=== PATIENT | female | born 1960 | race Caucasian/White ===

== ENCOUNTER 2019-09-20 01:25 | Day surgery (SDC) | payer OTHER, SELFPAY ==
[2019-09-14 13:11] VITALS: BMI 28.6
[2019-09-20 12:27] VITALS: BP 136/92; PULSE 87; RESP 16; TEMP 36.6; O2SAT 100; BMI 28.2
[2019-09-20] MEDS: LACTATED RINGERS 1,000 ML 150 ML IV CONT (12:38)
--- NOTE | 2019-09-20 12:53 | WPDANESEPPF ---
Anes - Initial Pre Proc Eval Procedure: Operation Date: 09/20/19 13:30 Proposed Procedures p Screening Colonoscopy - Clay Latif MD Date/Time: 09/20/19 12:53 Surgeon: Clay Latif MD Pre Op Diagnosis: Neoplasm Screening Patient Data Age: 59 Gender: F Height: 5 ft 9 in Weight: 86.8 kg Last Vital Signs Temp 36.6 C 09/20/19 12:27 Pulse 87 09/20/19 12:27 Resp 16 09/20/19 12:27 BP 136/92 H 09/20/19 12:27 Pulse Ox 100 09/20/19 12:27 Allergies Allergy/AdvReac Type Severity Reaction Status Date / Time No Known Allergies Allergy Unverified 09/20/19 12:26 Home Medications Medication Instructions Recorded Confirmed Type levothyroxine 75 mcg tablet 75 mcg PO DAILY #90 tablet 08/19/19 09/20/19 Rx Patient hx anesthesia problems: none Family hx anesthesia problems: none PMFSH Family History Family History Father Hypertension Family history of coronary artery disease Mother Hypertension Family history of coronary artery disease Sibling Hypertension Family history of type 1 diabetes mellitus Social History Social History Smoking status: Never smoker Alcohol intake: never Gender identity (if verbalized by the patient): Female Anes - Eval Final PreProcedure Day of Procedure 09/20/19 12:53 Patient weight: overweight Heart: regular rate and rhythm Lungs: clear to auscultation Airway: Mallampati scale class II Last oral intake: >/= 8 hours ASA classification: II Emergent: no Anesthetic plan: proceed Anesthesia type and monitoring: general GIVS and standard monitoring Informed Consent: The patient's anesthetic plan and its attendant risks and benefits were discussed with the patient/family/POA. Questions were solicited and answers provided to the satisfaction of the patient/family/POA.
--- NOTE | 2019-09-20 13:32 | PM.HPGS ---
History of Present Illness History of Present Illness Consent: Risks, benefits, and alternatives have been discussed and questions answered. Patient agrees to proceed with procedure. Chief complaint: Neoplasm Screening Narrative: Rayne Hidalgo is a 59 year old female here for screening colonoscopy, last one about 10 years ago. Review of Systems Constitutional: Constitutional: Denies headache(s) and Denies weakness Eyes: Eyes: Denies blurry vision ENT: Reports Normal hearing present, Denies headache(s) and Denies neck pain Cardiovascular: Cardiovascular: Denies chest pain and Denies dyspnea Respiratory: Respiratory: Denies dyspnea Gastrointestinal: Gastrointestinal: Reports no additional gastrointestinal complaints Genitourinary: Genitourinary: Denies dysuria Musculoskeletal: Musculoskeletal: Denies neck pain Integumentary/Breasts: Skin/Breast: Denies dry skin Neurologic: Reports Normal hearing present, Denies headache(s) and Denies weakness Psychiatric: Psychiatric: Denies anxiety Endocrine: Endocrine: Denies change in body appearance Hematologic/Lymphatic: Hematologic/Lymphatic: Denies easy bleeding Allergic/Immunologic: Allergic/Immunologic: Denies urticaria PMFSH Past Medical History Medical History (Updated 09/20/19 @ 13:32 by Clay Latif MD) Colon cancer screening Family History Family History Father Hypertension Family history of coronary artery disease Mother Hypertension Family history of coronary artery disease Sibling Hypertension Family history of type 1 diabetes mellitus Social History Social History Smoking status: Never smoker Alcohol intake: never Gender identity (if verbalized by the patient): Female Meds Home Medications and Allergies Home Medications Medication Instructions Recorded Confirmed Type levothyroxine 75 mcg tablet 75 mcg PO DAILY #90 tablet 08/19/19 09/20/19 Rx Allergies Allergy/AdvReac Type Severity Reaction Status Date / Time No Known Allergies Allergy Unverified 09/20/19 12:26 Vital Signs Vital Signs - 24 hr 09/20/19 12:27 Temperature 97.9 F Pulse Rate 87 Respiratory Rate 16 Blood Pressure 136/92 H Pulse Oximetry 100 Exam Const: General: comfortable and no acute distress HENMT: General nose exam: Normal nares present Eyes: General: appearance normal, both eyes and all related structures Neck: Neck: no JVD Resp: Auscultation: clear to auscultation bilaterally Cardio: Rate: regular rate Rhythm: regular rhythm GI: Inspection: non-distended GI Palp: Yes Soft to palpation Skin: General skin exam: normal color Neuro: General: gait normal Speech: normal speech Extrem: General: normal to inspection Psych: Mental Status: mental status grossly normal Assessment and Plan Assessment and plan (1) Colon cancer screening: Code(s): Z12.11 - Encounter for screening for malignant neoplasm of colon Status: Acute Assessment and Plan: will proceed with colonoscopy (2) Acquired hypothyroidism: Code(s): E03.9 - Hypothyroidism, unspecified Status: Chronic
[2019-09-20 13:55] VITALS: BP 110/68; PULSE 69; RESP 17; O2SAT 97
[2019-09-20 14:05] VITALS: BP 109/77; PULSE 68; RESP 23; O2SAT 97
[2019-09-20 14:15] VITALS: BP 104/77; PULSE 71; RESP 20; O2SAT 97
== END 2019-09-20 14:29 | disposition home or self-care (01) ==
PROVIDERS: PCP Family Medicine; Visit Provider Internal Medicine Gastroenterology
PROC: 0DJD8ZZ Inspection of Lower Intestinal Tract, Via Natural or Artificial Opening Endoscopic (ICD-10-PCS; CPT 45378; principal; 2019-09-20 13:30)
DX: Z12.11 Encounter for screening for malignant neoplasm of colon (principal); K57.30 Diverticulosis of large intestine without perforation or abscess without bleeding; K64.8 Other hemorrhoids; E03.9 Hypothyroidism, unspecified
CPT/HCPCS: 45378; J2704; J7120

== ENCOUNTER → 2019-10-27 17:44 | Outpatient (CLI) | payer OTHER, SELFPAY ==
--- NOTE | ~2019-10-27 | MM_ITS ---
EXAMINATION: MM screening [facility] BI w [place] HISTORY: Screening mammogram TECHNIQUE: Craniocaudal and mediolateral oblique 3-D tomosynthesis images were obtained and synthetic 2-D images were generated. CAD analysis was submitted and interpreted. COMPARISON: 10/01/2018, 09/29/2017, 09/23/2016 bilateral digital screening mammogram examinations of the resolution of right Or BREAST PARENCHYMAL COMPOSITION: There are scattered areas of fibroglandular density. FINDINGS: There are scattered smaller 5 mm bilateral low-density circumscribed opacities, with benign mammographic features. There is no evidence of suspicious mass, calcification, or architectural dist ortion to suggest malignancy in either breast. There has been no suspicious interval change. IMPRESSION: 1. No mammographic evidence of malignancy. 2. Recommend routine screening mammography in one year. BI-RADS Category 2: Benign finding(s). Reviewed, dictated and finalized at location A.
== END ==
PROVIDERS: Visit Provider Obstetrics & Gynecology
DX: Z12.31 Encounter for screening mammogram for malignant neoplasm of breast (principal)
CPT/HCPCS: 77063; 77067

== ENCOUNTER 2020-05-04 10:05 | Emergency (ER) | payer OTHER, SELFPAY ==
--- NOTE | ~2020-05-04 | XR_ITS ---
XR pelvis 1-2V 05/04/2020 10:56 Indication: Status post fall. Pelvic pain. Procedure: AP view of the pelvis Comparison: Right hip series dated 05/19/2016 Findings: Pelvic rings intact. Mild osteoarthritis of the hips. No acute fracture or traumatic malali gnment. Sacral foramen are symmetric. Impression: 1: Mild osteoarthritis of the hips. Reviewed, dictated and finalized at location B. Impression: 1: Mild osteoarthritis of the hips.
--- NOTE | ~2020-05-04 | XR_ITS ---
XR wrist LT min 3V 05/04/2020 10:56 Indication: Left wrist pain after fall Procedure: 4 views left wrist Comparison: No prior studies for comparison. Findings: There is a transverse fracture of the distal radial metaphysis with approximately one third bone width dorsal displacement and subtle dorsal tilt. There is ulnar styloid avulsion fracture. Impression: 1: Dorsally displaced distal radial metaphyseal fracture with mild dorsal tilt. 2: Ulnar styloid avulsion fracture. Reviewed, dictated and finalized at location B. Impression: 1: Dorsally displaced distal radial metaphyseal fracture with mild dorsal tilt. 2: Ulnar styloid avulsion fracture.
[2020-05-04 10:25] VITALS: BP 116/67; PULSE 56; RESP 16; TEMP 36.6; O2SAT 100
--- NOTE | 2020-05-04 10:32 | ED.FALL ---
HPI - Fall General Chief Complaint: Fall Stated Complaint: fall/wrist injury Time Seen by Provider: 05/04/20 10:32 History of Present Illness HPI Narrative: Fall down stairs this morning. She landed on her buttocks and left hand. She has severe pain in the left wrist. Sensation and motor intact. Additionally having mild pain in the left buttock. She has been ambulatory. She did not strike her head or sustain any additional injury. Related Data Allergies Allergy/AdvReac Type Severity Reaction Status Date / Time No Known Allergies Allergy Verified 05/04/20 10:29 Review of Systems Review of Systems: All systems reviewed & are unremarkable except as noted in HPI and below Constitutional: Constitutional: Denies fever(s) and Denies weakness Cardiovascular: Cardiovascular: Denies chest pain Respiratory: Respiratory: Denies dyspnea Gastrointestinal: Gastrointestinal: Denies abdominal pain and Denies nausea Musculoskeletal: Musculoskeletal: Denies back pain Neurologic: Denies dizziness, Denies syncope, Denies numbness and Denies weakness [facility] Past Medical History Medical History Colon cancer screening Family History Family History Father Hypertension Family history of coronary artery disease Mother Hypertension Family history of coronary artery disease Sibling Hypertension Family history of type 1 diabetes mellitus Social History Social History Smoking status: Never smoker Alcohol intake: never Substance use: never Substance use type: does not use Gender identity (if verbalized by the patient): Female Exam Const: General: healthy appearing, no acute distress and alert Orientation/consciousness: patient oriented x3 HENMT: Head: normal to inspection Course Vital Signs Vital signs: Vital Signs Temperature 36.6 C 05/04/20 10:25 Pulse Rate 56 L 05/04/20 10:25 Respiratory Rate 16 05/04/20 10:25 Blood Pressure 116/67 05/04/20 10:25 Pulse Oximetry 100 05/04/20 10:25 Temperature 36.6 C 05/04/20 10:25 Pulse Rate 58 L 05/04/20 12:13 Respiratory Rate 17 05/04/20 12:13 Blood Pressure 107/71 05/04/20 12:13 Pulse Oximetry 100 05/04/20 12:13 Procedures Orthopedic Splinting/Casting Injury #1: Side: left Splint: customized in ED OCL: short arm Pre-Procedure Neuro Vascular Exam: normal Post-Procedure Neuro Vascular Exam: normal MDM - Fall MDM Narrative Medical decision making narrative: mildy displaced and angulated wrist fracture. I do not believe that it would be of any significant benefit to attempt reduction at this time. Splinted. Will give ortho follow-up Medical Records Attestation: I reviewed the patient's medical records. Imaging Data Radiologist's impression: ITS Impressions Wrist X-Ray 05/04/20 10:58 Impression: 1: Dorsally displaced distal radial metaphyseal fracture with mild dorsal tilt. 2: Ulnar styloid avulsion fracture. Pelvis X-Ray 05/04/20 11:05 Impression: 1: Mild osteoarthritis of the hips. Discharge Plan Discharge Clinical Impression: Fracture of wrist Qualifiers: Encounter type: initial encounter Fracture type: closed Laterality: left Qualified Code(s): S62.102A - Fracture of unspecified carpal bone, left wrist, initial encounter for closed fracture Patient Disposition: Home, Self-Care Condition: Stable Instructions: Wrist Fracture in Adults (ED) Prescriptions: New hydrocodone-acetaminophen [[place]] 5-325 mg tablet 1 tablet PO Q4H PRN (Reason: pain) Qty: 10 RF: 0 ibuprofen 600 mg tablet 600 mg PO QID Qty: 30 RF: 0 No Action levothyroxine 75 mcg tablet 75 mcg PO DAILY Qty: 90 RF: 2 metoprolol succinate 50 mg tablet extended release 24 hr 50 mg PO DAILY Qty: 90 RF: 1
[2020-05-04] MEDS: HYDROcodone/acetaminophen (*CRX) 5-325 MG TABLET 1 TAB PO (11:08)
[2020-05-04 12:13] VITALS: BP 107/71; PULSE 58; RESP 17; O2SAT 100
== END 2020-05-04 12:14 | disposition home or self-care (01) ==
PROVIDERS: Emergency Provider Emergency Medicine; PCP Family Medicine
DX: S52.502A Unspecified fracture of the lower end of left radius, initial encounter for closed fracture (principal); S52.612A Displaced fracture of left ulna styloid process, initial encounter for closed fracture; W10.9XXA Fall (on) (from) unspecified stairs and steps, initial encounter
CPT/HCPCS: 29125; 72170; 73110; 99284; A9270

== ENCOUNTER → 2020-05-24 11:15 | Outpatient (CLI) | payer OTHER, SELFPAY ==
--- NOTE | ~2020-05-24 | DEXA_ITS ---
Bone Density Report Name: Rayne Hidalgo Age: 59 Sex: Female Ethnicity: White Date of : 1960 Indication: osteopenia; parental hip fracture; prior fracture; postmenopausal Referring Provider: KARLY JONES Study: Bone densitometry was performed. Exam Date: May 24, 2020 Accession number: [id number] Bone Density: Region BMD T-score Z-score Classification AP Spine (L1-L4) 0.824 -2.0 -0.5 Osteopenia Femoral Neck (Left) 0.728 -1.1 0.3 Osteopenia Total Hip (Left) 0.849 -0.8 0.3 Normal Femoral Neck (Right) 0.708 -1.3 0.1 Osteopenia Total Hip (Right) 0.860 -0.7 0.4 Normal Total Hip Mean 0.855 -0.8 0.4 Normal World Health Organization criteria for BMD impression classify patients as: Normal (T-score at or above -1.0), Osteopenia (T-score between -1.0 and -2.5), or Osteoporosis (T-score at or below -2.5). 10-year Fracture Risk(1): Major Osteoporotic Fracture 25% Hip Fracture 1.0% Reported Risk Factors: [place] (), Neck BMD=0.708, BMI=29.1, previous fracture, parental fracture (1) FRAX(R) Version 3.08. Fracture probability calculated for an untreated patient. Fracture probability may be lower if the patient has received treatment. Previous Exams: Region Exam Age BMD T-score BMD Change BMD Change Date g/cm2 vs Baseline vs Previous AP Spine(L1-L4) 05/24/2020 59 0.824 -2.0 -0.047* -0.033* 09/29/2017 57 0.857 -1.7 -0.015 0.032* 09/17/2015 55 0.825 -2.0 -0.047* 0.010 09/11/2012 52 0.814 -2.1 -0.057* -0.057* 07/24/2010 50 0.871 -1.6 0.000 0.000 06/28/2008 48 0.871 -1.6 Total Hip(Left) 05/24/2020 59 0.849 -0.8 -0.010 0.021 09/29/2017 57 0.828 -0.9 -0.031* -0.016 09/17/2015 55 0.844 -0.8 -0.015 0.020 09/11/2012 52 0.824 -1.0 -0.036* -0.027 07/24/2010 50 0.851 -0.7 -0.009 -0.009 06/28/2008 48 0.859 -0.7 Total Hip(Right) 05/24/2020 59 0.860 -0.7 0.001 0.037* 09/29/2017 57 0.824 -1.0 -0.035* -0.011 09/17/2015 55 0.835 -0.9 -0.025 0.022 09/11/2012 52 0.812 -1.1 -0.047* 0.003 07/24/2010 50 0.809 -1.1 -0.050* -0.050* 06/28/2008 48 0.859 -0.7 *Denotes significance at 95% confidence level, LSC for AP Spine = 0.022 g/cm2, LSC for Total Hip = 0.027 g/cm2 Clinical Information Provided by Patient:
== END ==
PROVIDERS: PCP Family Medicine; Visit Provider Orthopaedic Surgery
DX: M81.0 Age-related osteoporosis without current pathological fracture (principal); M85.88 Other specified disorders of bone density and structure, other site; M85.852 Other specified disorders of bone density and structure, left thigh; M85.851 Other specified disorders of bone density and structure, right thigh
CPT/HCPCS: 77080

== ENCOUNTER → 2020-11-08 07:16 | Outpatient (CLI) | payer OTHER, SELFPAY ==
--- NOTE | ~2020-11-08 | MM_ITS ---
EXAMINATION: MM screening [facility] BI w [place] HISTORY: Screening mammogram TECHNIQUE: Craniocaudal and mediolateral oblique 3-D tomosynthesis images were obtained and synthetic 2-D images were generated. CAD analysis was submitted and interpreted. COMPARISON: 10/27/2019, 10/01/2018, 09/29/2017 BREAST PARENCHYMAL COMPOSITION: There are scattered areas of fibroglandular density. FINDINGS: There is no evidence of suspicious mass, calcification, or architectural distortion to sugg est malignancy in either breast. There has been no suspicious interval change. IMPRESSION: 1. No mammographic evidence of malignancy. 2. Recommend routine screening mammography in one year. BI-RADS Category 1: Negative Reviewed, dictated and finalized at location A.
== END ==
PROVIDERS: Visit Provider Obstetrics & Gynecology
DX: Z12.31 Encounter for screening mammogram for malignant neoplasm of breast (principal)
CPT/HCPCS: 77063; 77067

== ENCOUNTER → 2021-04-20 00:38 | Outpatient (CLI) | payer OTHER, SELFPAY ==
[2021-04-20 21:01] LABS: SARS-CoV-2 RNA PCR Negative
== END ==
PROVIDERS: PCP Family Medicine; Visit Provider Family Medicine
DX: J02.9 Acute pharyngitis, unspecified (principal); Z20.828 Contact with and (suspected) exposure to other viral communicable diseases
CPT/HCPCS: C9803; U0003; U0005

== ENCOUNTER 2021-06-24 12:26 | Outpatient (CLI) | payer OTHER, SELFPAY ==
--- NOTE | 2021-06-24 15:13 | WPDPFTINT ---
PFT Procedure Performed PFT Procedure Performed Plethysmography (Lung Vol) Diffusing Cap (DLCO) Flow Vol Loop Spirometry w/o Bronchodil PFT Interpretation Lung volumes were measured with the body plethysmography method. Lung volumes are unremarkable. Spirometry showed normal expiratory flow rates and a normal FEV1 to FVC ratio of 77%. No post bronchodilator study carried out. Lung diffusion capacity is within the normal range. Impression: Spirometry, lung volumes, and lung diffusion capacity all within the normal range.
== END 2021-06-24 12:27 | disposition home or self-care (01) ==
LOC: ANHPFT 12:27
PROVIDERS: PCP Family Medicine; Visit Provider Internal Medicine Cardiovascular Disease
DX: R06.00 Dyspnea, unspecified (principal)
CPT/HCPCS: 94375; 94726; 94729

== ENCOUNTER 2021-11-28 08:28 | Outpatient (CLI) | payer OTHER, SELFPAY ==
--- NOTE | ~2021-11-28 | XR_ITS ---
EXAMINATION: XR lumbar spine min 4V EXAM DATE: 11/28/2021 08:57 INDICATION: Low Back And Left Hip Pain No Injury. TECHNIQUE: Lumber spine frontal, lateral, bilateral oblique projections. Coned down frontal and lat eral L5-S1 lumbar projections for interpretation. There is no prior study for comparison. FINDINGS: Minimal lumbar levocurvature. No spondylolysis. There is mild to moderate lumbar facet arth ropathy. There is mild disc disease T11-L2. Vertebral body and disc heights are otherwise well-mainta ined. The vertebral bodies are aligned in the AP dimension. Sacrum, sacroiliac joints, sacral arcuate lines are intact. There are no acute fractures identified. IMPRESSION: 1. Mild to moderate lumbar facet arthropathy. 2. Mild thoracolumbar disc disease. Reviewed, dictated and finalized at location B.
--- NOTE | ~2021-11-28 | XR_ITS ---
EXAMINATION: XR hip LT min 3V w AP pelvis EXAM DATE: 11/28/2021 08:57 INDICATION: Low Back And Left Hip Pain No Injury . TECHNIQUE: Left hip frontal, crosstable lateral and 'frog-leg' projections for interpretation. Fronta l projection pelvis. Correlation is made to right hip x-ray 2015. FINDINGS: There is mild to moderate symmetric bilateral hip primary osteoarthritis. No evidence of f emoral head avascular necrosis. Right acetabular bone island is unchanged. There are no acute fractur es or dislocations identified. There is no subcutaneous gas. The soft tissue is unremarkable. The re are no radiopaque foreign bodies. IMPRESSION: Mild to moderate symmetric bilateral hip osteoarthritis. Reviewed, dictated and finalized at location B.
== END 2021-11-28 08:29 | disposition home or self-care (01) ==
LOC: ANHIMG 08:34
PROVIDERS: PCP Family Medicine; Visit Provider Physician Assistant
DX: M51.34 Other intervertebral disc degeneration, thoracic region (principal); M16.0 Bilateral primary osteoarthritis of hip
CPT/HCPCS: 72110; 73502

== ENCOUNTER → 2021-12-12 12:30 | Outpatient (CLI) | payer OTHER, SELFPAY ==
--- NOTE | ~2021-12-12 | MM_ITS ---
EXAMINATION: MM screening [facility] BI w [place] HISTORY: Screening TECHNIQUE: Craniocaudal and mediolateral oblique 3-D tomosynthesis images were obtained and synthetic 2-D images were generated. CAD analysis was submitted and interpreted. COMPARISON: Comparison to multiple prior studies sequentially, with oldest reviewed study dated 02/2017. BREAST PARENCHYMAL COMPOSITION: There are scattered areas of fibroglandular density. FINDINGS: There is no evidence of suspicious mass, calcification, or architectural distortion to sugg est malignancy in either breast. There has been no suspicious interval change. IMPRESSION: 1. No mammographic evidence of malignancy. 2. Recommend routine screening mammography in one year. BI-RADS Category 1: Negative Reviewed, dictated and finalized at location A.
== END ==
PROVIDERS: PCP Family Medicine; Visit Provider Nurse Practitioner
DX: Z12.31 Encounter for screening mammogram for malignant neoplasm of breast (principal)
CPT/HCPCS: 77063; 77067

== ENCOUNTER 2022-03-23 10:03 | Emergency (ER) | payer OTHER, SELFPAY ==
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
[2022-03-23 10:05] VITALS: BP 132/79; PULSE 94; RESP 16; TEMP 37.1; O2SAT 99
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
== END 2022-03-23 13:40 | disposition home or self-care (01) ==
PROVIDERS: Emergency Provider Emergency Medicine; PCP Family Medicine
DX: S42.255A Nondisplaced fracture of greater tuberosity of left humerus, initial encounter for closed fracture (principal); S29.9XXA Unspecified injury of thorax, initial encounter; S80.212A Abrasion, left knee, initial encounter; I10 Essential (primary) hypertension; E03.9 Hypothyroidism, unspecified; Z90.5 Acquired absence of kidney; V18.4XXA Pedal cycle driver injured in noncollision transport accident in traffic accident, initial encounter
CPT/HCPCS: 71100; 73030; 99284; A4565

== ENCOUNTER → 2022-08-12 14:45 | Outpatient (CLI) | payer OTHER, SELFPAY ==
--- NOTE | ~2022-08-12 | DEXA_ITS ---
Bone Density Report Name: MARTHA FUCHS Age: 62 Sex: Female Ethnicity: White Date of : 1960 Indication: osteopenia; parental hip fracture; prior fracture; postmenopausal Referring Provider: Willie*Brigitte, Jenny Study: Bone densitometry was performed. Exam Date: August 12, 2022 Accession number: [id number] Bone Density: Region BMD T-score Z-score Classification AP Spine (L1-L4) 0.839 -1.9 -0.2 Osteopenia Femoral Neck (Left) 0.728 -1.1 0.4 Osteopenia Total Hip (Left) 0.876 -0.5 0.6 Normal Femoral Neck (Right) 0.690 -1.4 0.0 Osteopenia Total Hip (Right) 0.858 -0.7 0.5 Normal Total Hip Mean 0.867 -0.6 0.6 Normal World Health Organization criteria for BMD impression classify patients as: Normal (T-score at or above -1.0), Osteopenia (T-score between -1.0 and -2.5), or Osteoporosis (T-score at or below -2.5). 10-year Fracture Risk(1): Major Osteoporotic Fracture 26% Hip Fracture 1.4% Reported Risk Factors: [place] (), Neck BMD=0.690, BMI=29.5, previous fracture, parental fracture (1) FRAX(R) Version 3.08. Fracture probability calculated for an untreated patient. Fracture probability may be lower if the patient has received treatment. Previous Exams: Region Exam Age BMD T-score BMD Change BMD Change Date g/cm2 vs Baseline vs Previous AP Spine(L1-L4) 08/12/2022 62 0.839 -1.9 -0.032 0.015 05/24/2020 59 0.824 -2.0 -0.047* -0.033* 09/29/2017 57 0.857 -1.7 -0.015 0.032* 09/17/2015 55 0.825 -2.0 -0.047* 0.010 09/11/2012 52 0.814 -2.1 -0.057* -0.057* 07/24/2010 50 0.871 -1.6 0.000 0.000 06/28/2008 48 0.871 -1.6 Total Hip(Left) 08/12/2022 62 0.876 -0.5 0.017 0.027 05/24/2020 59 0.849 -0.8 -0.010 0.021 09/29/2017 57 0.828 -0.9 -0.031* -0.016 09/17/2015 55 0.844 -0.8 -0.015 0.020 09/11/2012 52 0.824 -1.0 -0.036* -0.027 07/24/2010 50 0.851 -0.7 -0.009 -0.009 06/28/2008 48 0.859 -0.7 Total Hip(Right) 08/12/2022 62 0.858 -0.7 -0.001 -0.002 05/24/2020 59 0.860 -0.7 0.001 0.037* 09/29/2017 57 0.824 -1.0 -0.035* -0.011 09/17/2015 55 0.835 -0.9 -0.025 0.022 09/11/2012 52 0.812 -1.1 -0.047* 0.003 07/24/2010 50 0.809 -1.1 -0.050* -0.050* 06/28/2008 48 0.859 -0.7
== END ==
PROVIDERS: PCP Family Medicine; Visit Provider Nurse Practitioner
DX: M85.88 Other specified disorders of bone density and structure, other site (principal); M85.852 Other specified disorders of bone density and structure, left thigh; M85.851 Other specified disorders of bone density and structure, right thigh
CPT/HCPCS: 77080

== ENCOUNTER → 2023-01-30 16:11 | Outpatient (CLI) | payer OTHER, SELFPAY ==
--- NOTE | ~2023-01-30 | MM_ITS ---
EXAMINATION: MM screening [facility] BI w [facility] HISTORY: Screening mammogram TECHNIQUE: Craniocaudal and mediolateral oblique 3-D tomosynthesis images were obtained and synthetic 2-D images were generated. CAD analysis was submitted and interpreted. COMPARISON: December 12, 2021, November 08, 2020, October 27, 2019, October 01, 2018 .bilateral screening ma mmogram examinations BREAST PARENCHYMAL COMPOSITION: There are scattered areas of fibroglandular density. FINDINGS: Occasional small low-density circumscribed opacities of each breast, stable since October 01, 2018. There is no evidence of suspicious mass, calcification, or architectural distortion to sugg est malignancy in either breast. There has been no suspicious interval change. IMPRESSION: 1. No mammographic evidence of malignancy. 2. Recommend routine screening mammography in one year. BI-RADS Category 2: Benign finding(s). Reviewed, dictated and finalized at location A.
== END ==
PROVIDERS: PCP Nurse Practitioner; Visit Provider Nurse Practitioner
DX: Z12.31 Encounter for screening mammogram for malignant neoplasm of breast (principal)
CPT/HCPCS: 77063; 77067